=== PATIENT | female | born 1950 | race Caucasian/White ===

== ENCOUNTER 2017-03-17 07:30 | Day surgery (SDC) | payer MEDICARE, BC ==
[~2017-03-17 07:30] MED LIST: Fluorescein 5 ML Vial ONE; Scopolamine 1.5 MG Transdermal Patch TRDERM PRN; Sodium Chloride 0.9% 10 ML Syringe FLUSH PRN; Sodium Chloride 0.9% 2.5 ML Syringe FLUSH PRN; ceFAZolin 1 GM in Premix Bag 1 BAG IV ONE; fentaNYL 100 MCG/2 ML SDV IVPUSH PRN
[2017-03-17] MEDS ORDERED: Midazolam 1 MG/ML 2 ML SDV ONE (07:37)
[2017-03-17] MEDS ORDERED: Propofol 200 MG/20 ML SDV ONE (07:37)
[2017-03-17] MEDS ORDERED: Lidocaine 2% 5 ML SDV ONE (07:37)
[2017-03-17] MEDS ORDERED: Ondansetron 4 MG/2 ML SDV ONE (07:37)
[2017-03-17] MEDS ORDERED: fentaNYL 100 MCG/2 ML SDV ONE (07:37)
[2017-03-17] MEDS ORDERED: Rocuronium 10 MG/ML 10 ML Syringe ONE (07:37)
[2017-03-17] MEDS ORDERED: HYDROmorphone 2 MG/ML SDV ONE (07:38)
[2017-03-17] MEDS ORDERED: Acetaminophen 1,000 MG in Premix Bag 1 BAG IV SCH (08:00)
--- NOTE | 2017-03-17 08:13 | PCM.PREANE ---
Preanesthetic Assessment - Anesthesia/Transfusion/Family Hx Anesthesia History: Prior Anesthesia Reaction Type of Anesthesia Reaction: Excessive Nausea/Vomiting Family History of Anesthesia Reaction: No Transfusion History: No Prior Transfusion(s) Intubation History: Unknown - Review of Systems General: No Symptoms Pulmonary: No Symptoms Cardiovascular: No Symptoms Gastrointestinal: No Symptoms Neurological: No Symptoms Other: Reports: None - Physical Assessment O2 Sat by Pulse Oximetry: 95 Respiratory Rate: 16 Vital Signs: Last Vital Signs Temp 36.4 C 03/17/17 07:41 Pulse 74 03/17/17 07:41 Resp 16 03/17/17 07:41 BP 141/67 H 03/17/17 07:41 Pulse Ox 95 03/17/17 07:41 Height: 1.6 m Weight: 71.668 kg ASA Class: 2 Mental Status: Alert & Oriented x3 Airway Class: Mallampati = 2 Dentition: Reports: Normal Dentition Thyro-Mental Finger Breadths: 3 Mouth Opening Finger Breadths: 3 ROM/Head Extension: Full Lungs: Clear to Auscultation, Normal Respiratory Effort Cardiovascular: Regular Rate, Regular Rhythm - Allergies Allergies/Adverse Reactions: Allergies Allergy/AdvReac Type Severity Reaction Status Date / Time No Known Allergies Allergy Verified 03/17/17 07:43 - Blood Blood Available: No - Anesthesia Plan Pre-Op Medication Ordered: None - Acknowledgements Anesthesia Type Planned: General Anesthesia Pt an Appropriate Candidate for the Planned Anesthesia: Yes Alternatives and Risks of Anesthesia Discussed w Pt/Guardian: Yes Pt/Guardian Understands and Agrees with Anesthesia Plan: Yes PreAnesthesia Questionnaire HEENT History: Reports: Glaucoma Other HEENT History: wears glasses Cardiovascular History: Reports: Other (See Below) (borderline hypercholesteronemia) Gastrointestinal History: Reports: Other (See Below) Other Gastrointestinal History: occasional heartburn Genitourinary History: Reports: None UNDERCUTTER History: Reports: , Prolapsed Uterus - Past Surgical History Head Surgeries/Procedures: Reports: None HEENT Surgical History: Reports: Oral Surgery GI Surgical History: Reports: Colonoscopy (x2) Female Surgical History: Reports: Breast Biopsy, Tubal Ligation - SUBSTANCE USE Smoking Status *Q: Never Smoker Recreational Drug Use History: No - HOME MEDS Home Medications: Home Meds Aspirin [[place] Aspirin] 81 mg PO DAILY 03/12/17 [History] Brimonidine/Timolol [Combigan 0.2%/0.5% Ophth Soln] 1 drop EYEBOTH BID 03/12/17 [History] Ibuprofen 1 tab PO ASDIRECTED PRN 03/12/17 [History] Latanoprost [Xalatan 0.005% Ophth Soln] 1 drop EYEBOTH BEDTIME 03/12/17 [History ] - CURRENT (IN HOUSE) MEDS Current Meds: Current Medications Fentanyl (Sublimaze) 50 mcg IVPUSH .Q5MIN PRN PRN Reason: Pain Acetaminophen 1,000 mg/ Premix 100 mls @ 400 mls/hr IV .ONETIME [facility] Last Admin: 03/17/17 08:02 Dose: 400 mls/hr Scopolamine (Transderm-Scop) 1.5 mg TRDERM .ONCE PRN PRN Reason: Post Op Nausea Sodium Chloride (Saline Flush) 10 ml FLUSH ASDIRECTED PRN PRN Reason: Keep Vein Open Sodium Chloride (Saline Flush) 2.5 ml FLUSH ASDIRECTED PRN PRN Reason: Keep Vein Open Discontinued Medications Fentanyl (Sublimaze) Confirm Administered Dose 100 mcg .ROUTE .STK-MED ONE Stop: 03/17/17 07:38 Fluorescein Sodium (Ak-Fluor) Confirm Administered Dose 5 ml .ROUTE .STK-MED ONE Stop: 03/17/17 07:22 Hydromorphone HCl (Dilaudid) Confirm Administered Dose 2 mg .ROUTE .STK-MED ONE Stop: 03/17/17 07:39 Cefazolin Sodium/Dextrose 1 gm (/ Premix) 50 mls @ 100 mls/hr IV ONETIME ONE Stop: 03/17/17 05:29 Lidocaine (Xylocaine-Mpf 2%) Confirm Administered Dose 5 ml .ROUTE .STK-MED ONE Stop: 03/17/17 07:38 Midazolam HCl (Versed 1 Mg/Ml) Confirm Administered Dose 2 mg .ROUTE .STK-MED ONE Stop: 03/17/17 07:38 Ondansetron HCl (Zofran) Confirm Administered Dose 4 mg .ROUTE .STK-MED ONE Stop: 03/17/17 07:38 Propofol (Diprivan 20 Ml) Confirm Administered Dose 200 mg .ROUTE .STK-MED ONE Stop: 03/17/17 07:38 Rocuronium [place] (Zemuron) Confirm Administered Dose 100 mg .ROUTE .The Filter-MED ONE Stop: 03/17/17 07:38
[2017-03-17 08:36] LABS: CHLORIDE,CL 108 mmol/L (98-110); SODIUM,NA 141 mmol/L (136-146)
[2017-03-17] MEDS ORDERED: diphenhydrAMINE 50 MG/ML SDV ONE (09:00)
[2017-03-17] MEDS ORDERED: Dexamethasone 4 MG/ML 5 ML MDV ONE (09:22)
[2017-03-17] MEDS ORDERED: EPINEPHrine 1 MG/ML SDV ONE (09:25)
[2017-03-17] MEDS ORDERED: Furosemide 40 MG/4 ML VIAL ONE (09:42)
[2017-03-17] MEDS ORDERED: Ketorolac 30 MG/ML SDV IVPUSH ONE (10:27)
[2017-03-17] MEDS ORDERED: Acetaminophen/oxyCODONE 325-5 MG Tab PO PRN ×2 (10:27)
[2017-03-17] MEDS ORDERED: Morphine 2 MG/ML Syringe IVPUSH PRN (10:27)
[2017-03-17] MEDS ORDERED: Morphine 4 MG/ML Syringe IVPUSH PRN (10:27)
[2017-03-17] MEDS ORDERED: Ketorolac 30 MG/ML SDV IVPUSH PRN (10:27)
--- NOTE | 2017-03-17 10:40 | PCM.OPNOTE ---
- General Post-Op/Procedure Note Date of Surgery/Procedure: 03/17/17 Operative Procedure(s): TVH/BSO/anterior repair/culdoplasty/cystoscopy Findings: 3rd degree uterine prolapse and cystocele. Bilateral patent ureters Pre Op Diagnosis: Incomplete uterovaginal prolapse Post-Op Diagnosis: Same Anesthesia Technique: General ET Tube Primary Surgeon: Cortney Glover Contract Accountant: Renetta Mejía Pathology: uterus, tubes, ovaries, vaginal mucosa Fluid Replacement, Intraop: 1,800 EBL in mLs: 200 Complications: none known Condition: Good Free Text/Narrative:: Dictation [id number]
--- NOTE | 2017-03-17 11:18 | PCM.POSTAN ---
POST ANESTHESIA ASSESSMENT - MENTAL STATUS Mental Status: Alert, Oriented - RESPIRATORY Respiratory Status: Respiratory Rate WNL, Airway Patent, O2 Saturation Stable - CARDIOVASCULAR CV Status: Pulse Rate WNL, Blood Pressure Stable - GASTROINTESTINAL GI Status: No Symptoms - PAIN Pain Score: 2 - POST OP HYDRATION Hydration Status: Adequate & Stable - OBSERVATIONS Free Text/Narrative:: no anesthesia problems
[2017-03-17] MEDS: Lactated Ringers 1,000 ML IV SCH ×2 (11:39→20:06)
[2017-03-17] MEDS: Ondansetron 4 MG/2 ML SDV IVPUSH PRN ×2 (15:27→22:40)
--- NOTE | 2017-03-17 16:10 | OR ---
SURGEON: Cortney Glover M.D. DATE OF PROCEDURE: 03/17/2017 PREOPERATIVE DIAGNOSIS: Incomplete uterovaginal prolapse, symptomatic. POSTOPERATIVE DIAGNOSIS: Incomplete uterovaginal prolapse, symptomatic. PROCEDURE: 1. Total vaginal hysterectomy and bilateral salpingo-oophorectomy. 2. Anterior colporrhaphy. 3. Stoner's culdoplasty and cystoscopy. ANESTHESIA: General endotracheal anesthesia. FINAL CLEANER: Renetta Mejía M.D. ESTIMATED BLOOD LOSS: 200 mL. FLUIDS: 1800 mL crystalloid. COMPLICATIONS: None known. FINDINGS: Third-degree uterine prolapse and cystocele. Bilateral patent ureters with cystoscopy, post procedure. DISPOSITION: The patient to PACU in stable. SPECIMENS: Pathology. INDICATIONS: Pamela is a 66-year-old postmenopausal female, who has ongoing difficulties with pelvic organ prolapse. At this time, she would like to proceed with surgical intervention. Risks of the procedure have been discussed with her. Proper consent obtained. The patient was taken to the operating room, where she underwent general endotracheal anesthesia. She was placed in modified dorsal position prepped and draped in the usual sterile fashion. SCDs lower extremities. Lucio to gravity. Received Ancef prophylactically. A time-out was performed. A heavyweight speculum was placed posteriorly to the vagina, anterior [place]. Cervix was grasped with Yifan clamp and circumscribed with Bovie cautery. Anterior and posterior and side wall mucosa was dissected away from underlying peritoneum bluntly. The posterior peritoneum was tented downward and entered sharply. A longer weighted speculum was replaced with the shorter anteriorly. A sharp dissection was performed with Metzenbaum scissors to enter the anterior cul-de-sac. Colt was now placed to mobilize the bladder away from operative field. Ann Marie clamp was placed on either sides, along the uterosacral ligaments, transected and suture ligated with 2-0 Vicryl. Further pedicle on either side was able be secured, transected, and suture ligated in the final pedicle on either side, incorporating the utero tubo-ovarian pedicle was able to be secured, transected, and suture ligated. The uterus was handed off to manufacturing maintenance technician. The moist vaginal packing was now placed to mobilize the bowel away from operative field. The right infundibulopelvic ligament was able to be identified. The tube and ovary were grasped with a Peter clamp and Z-clamp x2 was placed across the pedicle. The pedicle was now transected and suture ligated with 2-0 Vicryl on pass followed by suture. The pedicle was inspected and found to be hemostatic. A similar process was performed on the patient's left side. The infundibulopelvic pelvic ligament was able to be identified, transected with the Z-clamp x2, cut and suture tied x2. These pedicles were closely inspected, found to be hemostatic, and sutures trimmed. The uterosacral ligament pedicle on either side was secured to the vaginal apex in order to help decrease risk for enterocele forming. Stoner's culdoplasty was performed. The 2-0 Vicryl incorporating the left uterosacral ligament was able to be reefed along the posterior peritoneum and then incorporating the right uterosacral ligament in a similar fashion was performed on further posterior reefing of the peritoneum just cephalad to this previous suture. Attention was now turned to performing the anterior repair as the pedicles appeared hemostatic along the hysterectomy. Along the midline, the anterior mucosa was able to be grasped with Allis clamps. Hydrodissection was performed along the midline. A sagittal midline anterior mucosal incision was created using Metzenbaum scissors. This was further dissected. The edges of the mucosa were now grasped on either side with serial Allis clamps. The overlying mucosa was gently dissected sharply and bluntly from underlying muscularis tissue until a stronger lateral muscularis tissue was able to be identified. This tissue was now replicated using 2-0 Vicryl in inverted mattress suture technique in order to reduce the cystocele defect. Sutures trimmed, excess vaginal mucosa was trimmed. The edges of mucosa were now replicated using 0 Vicryl in continuous running locked fashion; one to the level of the vaginal cuff. The Stoner's culdoplasty sutures were tied down x2. The remainder of the vaginal mucosa was now closed along the cuff and the cuff line was inspected and found to be hemostatic. All sutures trimmed. The Lucio balloon was deflated, Lucio catheter removed, and cystoscope was introduced. IV porcine with Lasix had been introduced via IV. The bladder was able to be visualized. The dome of the bladder was found to be intact. Trigone was inspected. The right ureteral orifice followed by the left ureteral orifice had fluorescein dyed urine seen streaming from them, helping to ensure ureteral patency. Therefore, the bladder was drained. Lucio catheter was replaced. The cuff line once again inspected and found to be hemostatic. Vaginal packing was placed. The patient tolerated the procedure well. She will go to PACU in stable condition. All specimens to pathology. Sponge, instrument, and needle counts were correct x2. DAVID / MCKENZIE /[id number]
[2017-03-17] MEDS: Promethazine 25 MG/ML SDV IM PRN (17:10)
--- NOTE | 2017-03-17 18:30 | PCM.SN ---
- Free Text/Narrative Note: Patient's pain is controlled overall--had emesis earlier, nausea is improving. VS stable overall--BPs mildly elevated. Explained intraoperative findings, procedure. Continue postoperative cares and provide antiemetics as indicated. Plan removal of vaginal pack and thomas in the morning.
[2017-03-17] MEDS: Docusate Sodium 100 MG Cap PO SCH (20:06)
[2017-03-18] MEDS: Promethazine 25 MG/ML SDV IM PRN (00:53)
[2017-03-18] MEDS: Lactated Ringers 1,000 ML IV SCH (03:52)
[2017-03-18 05:37] LABS: CHLORIDE,CL 99 mmol/L (98-110); SODIUM,NA 132 mmol/L (136-146)
[2017-03-18] MEDS: Docusate Sodium 100 MG Cap PO SCH (08:26)
--- NOTE | 2017-03-18 10:40 | PCM.SURGPN ---
- General Info Date of Service: 03/18/17 POD#: 1 Functional Status: Reports: Pain Controlled, Tolerating Diet, Ambulating - Review of Systems General: Denies: Fever, Weakness Pulmonary: Denies: Shortness of Breath Cardiovascular: Denies: Chest Pain, Palpitations, Lightheadedness Gastrointestinal: Denies: Nausea (had multiple emesis last night, but finally resolved and slept through the night. Had toast this morning), Vomiting Genitourinary: Denies: Flank Pain Neurological: Reports: No Symptoms Psychiatric: Reports: No Symptoms - Patient Data Vitals - Most Recent: Last Vital Signs Temp 37.2 C 03/18/17 08:00 Pulse 93 03/18/17 08:00 Resp 16 03/18/17 08:00 BP 139/81 03/18/17 08:00 Pulse Ox 95 03/18/17 08:00 Weight - Most Recent: 71.668 kg I&O - Last 24 Hours: Intake & Output 03/17/17 03/18/17 03/18/17 22:59 06:59 14:59 Intake Total 2107 1360 Output Total 925 2150 Balance 1182 -790 Lab Results Last 24 Hrs: Laboratory Results - last 24 hr 03/18/17 03/18/17 Range/Units 04:58 04:58 WBC 16.44 H (4.0-11.0) K/uL RBC 4.01 L (4.30-5.90) M/uL Hgb 11.7 L (12.0-16.0) g/dL Hct 34.4 L (36.0-46.0) % MCV 85.8 (80.0-98.0) fL MCH 29.2 (27.0-32.0) pg MCHC 34.0 (31.0-37.0) g/dL RDW Std Deviation 38.0 (28.0-62.0) fl RDW Coeff of Katiana 12 (11.0-15.0) % Plt Count 316 (150-400) K/uL MPV 9.40 (7.40-12.00) fL Neut % (Auto) 82.7 H (48.0-80.0) % Lymph % (Auto) 10.6 L (16.0-40.0) % [place] % (Auto) 6.6 (0.0-15.0) % Eos % (Auto) 0.0 (0.0-7.0) % Baso % (Auto) 0.1 (0.0-1.5) % Neut # (Auto) 13.6 H (1.4-5.7) K/uL Lymph # (Auto) 1.7 (0.6-2.4) K/uL [place] # (Auto) 1.1 H (0.0-0.8) K/uL Eos # (Auto) 0.0 (0.0-0.7) K/uL Baso # (Auto) 0.0 (0.0-0.1) K/uL Nucleated RBC % 0.0 /100WBC Nucleated RBCs # 0 K/uL Sodium 132 L (136-146) mmol/L Potassium 4.0 (3.5-5.1) mmol/L Chloride 99 (98-110) mmol/L Carbon Dioxide 21 (21-31) mmol/L BUN 9 (6.0-23.0) mg/dL Creatinine 0.7 (0.6-1.5) mg/dL Est Cr Clr Drug Dosing 63.63 mL/min Estimated GFR (MDRD) > 60.0 ml/min Glucose 121 H (60-110) mg/dL Calcium 9.1 (8.8-10.8) mg/dL Med Orders - Current: Current Medications Docusate Sodium (Colace) 100 mg PO BID [facility] Last Admin: 03/18/17 08:26 Dose: 100 mg Fentanyl (Sublimaze) 50 mcg IVPUSH .Q5MIN PRN PRN Reason: Pain Acetaminophen 1,000 mg/ Premix 100 mls @ 400 mls/hr IV .ONETIME [facility] Last Admin: 03/17/17 08:02 Dose: 400 mls/hr Lactated Ringer's (Ringers, Lactated) 1,000 mls @ 125 mls/hr IV ASDIRECTED [facility] Last Admin: 03/18/17 03:52 Dose: 125 mls/hr Ketorolac Tromethamine (Toradol) 15 mg IVPUSH Q6H PRN PRN Reason: Pain (severe 7-10) Stop: 03/22/17 10:27 Last Admin: 03/18/17 00:53 Dose: 15 mg Morphine Sulfate (Morphine) 2 mg IVPUSH Q2H PRN PRN Reason: Pain (severe 7-10) Last Admin: 03/17/17 18:51 Dose: 2 mg Morphine Sulfate (Morphine) 4 mg IVPUSH Q2H PRN PRN Reason: Pain (severe 7-10) Ondansetron HCl (Zofran) 4 mg IVPUSH Q6H PRN PRN Reason: Nausea/Vomiting Last Admin: 03/17/17 22:40 Dose: 4 mg Oxycodone/Acetaminophen (Percocet 325-5 Mg) 1 tab PO Q4H PRN PRN Reason: Pain (moderate 4-6) Last Admin: 03/17/17 14:58 Dose: 1 tab Oxycodone/Acetaminophen (Percocet 325-5 Mg) 2 tab PO Q4H PRN PRN Reason: Pain (moderate 4-6) Promethazine HCl (Phenergan) 25 mg IM Q6H PRN PRN Reason: Nausea/Vomiting Last Admin: 03/18/17 00:53 Dose: 25 mg Sodium Chloride (Saline Flush) 10 ml FLUSH ASDIRECTED PRN PRN Reason: Keep Vein Open Sodium Chloride (Saline Flush) 2.5 ml FLUSH ASDIRECTED PRN PRN Reason: Keep Vein Open Discontinued Medications Dexamethasone (Dexamethasone) Confirm Administered Dose 20 mg .ROUTE .STK-MED ONE Stop: 03/17/17 09:23 Diphenhydramine HCl (Benadryl) Confirm Administered Dose 50 mg .ROUTE .STK-MED ONE Stop: 03/17/17 09:01 Epinephrine HCl (Adrenalin) Confirm Administered Dose 1 mg .ROUTE .STK-MED ONE Stop: 03/17/17 09:26 Fentanyl (Sublimaze) Confirm Administered Dose 100 mcg .ROUTE .STK-MED ONE Stop: 03/17/17 07:38 Fluorescein Sodium (Ak-Fluor) Confirm Administered Dose 5 ml .ROUTE .STK-MED ONE Stop: 03/17/17 07:22 Furosemide (Lasix) Confirm Administered Dose 40 mg .ROUTE .STK-MED ONE Stop: 03/17/17 09:43 Hydromorphone HCl (Dilaudid) Confirm Administered Dose 2 mg .ROUTE .STK-MED ONE Stop: 03/17/17 07:39 Cefazolin Sodium/Dextrose 1 gm (/ Premix) 50 mls @ 100 mls/hr IV ONETIME ONE Stop: 03/17/17 05:29 Last Admin: 03/17/17 11:36 Dose: Not Given Ketorolac Tromethamine (Toradol) 30 mg IVPUSH ONETIME ONE Stop: 03/17/17 10:28 Last Admin: 03/17/17 10:55 Dose: 30 mg Lidocaine (Xylocaine-Mpf 2%) Confirm Administered Dose 5 ml .ROUTE .STK-MED ONE Stop: 03/17/17 07:38 Midazolam HCl (Versed 1 Mg/Ml) Confirm Administered Dose 2 mg .ROUTE .STK-MED ONE Stop: 03/17/17 07:38 Ondansetron HCl (Zofran) Confirm Administered Dose 4 mg .ROUTE .STK-MED ONE Stop: 03/17/17 07:38 Propofol (Diprivan 20 Ml) Confirm Administered Dose 200 mg .ROUTE .STK-MED ONE Stop: 03/17/17 07:38 Rocuronium [place] (Zemuron) Confirm Administered Dose 100 mg .ROUTE .STK-MED ONE Stop: 03/17/17 07:38 Scopolamine (Transderm-Scop) 1.5 mg TRDERM .ONCE PRN PRN Reason: Post Op Nausea - Exam General: Alert, Oriented Lungs: Normal Respiratory Effort Cardiovascular: Regular Rate, Regular Rhythm GI/Abdominal Exam: Normal Bowel Sounds, Soft, No Distention. No: Guarding, Rigid Extremities: No: Rafita's Sign Skin: Warm, Dry, Intact Psy/Mental Status: Alert, Normal Affect Physical Findings Comment:: Vaginal packing removed, patient tolerated well. - Problem List & Annotations (1) Incomplete uterovaginal prolapse SNOMED Code(s): 290686796 Code(s): N81.2 - INCOMPLETE UTEROVAGINAL PROLAPSE Status: Acute Current Visit: Yes - Problem List Review Problem List Initiated/Reviewed/Updated: Yes - My Orders Last 24 Hours: Active Orders 24 hr Category Date Time Status Patient Status [ADT] Routine ADT 03/17/17 10:27 Active Antiembolic Devices [RC] PER UNIT ROUTINE Care 03/17/17 10:28 Active May Shower [RC] ASDIRECTED Care 03/17/17 10:27 Active Notify Provider Intake and Out [RC] ASDIRECTED Care 03/17/17 10:27 Active Notify Provider Vital Signs [RC] ASDIRECTED Care 03/17/17 10:27 Active RT Incentive Spirometry [RC] Q2HWA Care 03/17/17 10:27 Active Ready for Discharge [RC] PER UNIT ROUTINE Care 03/18/17 10:37 Ordered Up With Assistance [RC] PER UNIT ROUTINE Care 03/17/17 10:27 Active Up ad Lin [RC] PER UNIT ROUTINE Care 03/17/17 10:27 Active Urinary Catheter Removal [RC] Per Unit Routine Care 03/17/17 10:27 Active Regular Diet [DIET] Diet 03/17/17 Lunch Active Acetaminophen/oxyCODONE [Percocet 325-5 MG] Med 03/17/17 10:27 Active 1 tab PO Q4H PRN Acetaminophen/oxyCODONE [Percocet 325-5 MG] Med 03/17/17 10:27 Active 2 tab PO Q4H PRN Docusate Sodium [Colace] Med 03/17/17 21:00 Active 100 mg PO BID Ketorolac [Toradol] Med 03/17/17 10:27 Active 15 mg IVPUSH Q6H PRN Lactated Ringers [Ringers, Lactated] 1,000 ml Med 03/17/17 10:30 Active IV ASDIRECTED Morphine Med 03/17/17 10:27 Active 2 mg IVPUSH Q2H PRN Morphine Med 03/17/17 10:27 Active 4 mg IVPUSH Q2H PRN Ondansetron [Zofran] Med 03/17/17 10:27 Active 4 mg IVPUSH Q6H PRN Promethazine [Phenergan] Med 03/17/17 10:27 Active 25 mg IM Q6H PRN Perineal Care [OM.PC] Per Unit Routine Oth 03/17/17 10:28 Ordered Peripheral IV Discontinue [OM.PC] Routine Oth 03/17/17 10:27 Ordered Sequential Compression Device [OM.PC] Per Unit Routine Oth 03/17/17 10:27 Ordered Medication Orders Docusate Sodium (Colace) 100 mg PO BID [facility] Last Admin: 03/18/17 08:26 Dose: 100 mg Admin: 03/17/17 20:06 Dose: 100 mg Fentanyl (Sublimaze) 50 mcg IVPUSH .Q5MIN PRN PRN Reason: Pain Acetaminophen 1,000 mg/ Premix 100 mls @ 400 mls/hr IV .ONETIME [facility] Last Admin: 03/17/17 08:02 Dose: 400 mls/hr Lactated Ringer's (Ringers, Lactated) 1,000 mls @ 125 mls/hr IV ASDIRECTED [facility] Last Admin: 03/18/17 03:52 Dose: 125 mls/hr Infusion: 03/18/17 03:52 Dose: 125 mls/hr Admin: 03/17/17 20:06 Dose: 125 mls/hr Infusion: 03/17/17 19:39 Dose: 125 mls/hr Admin: 03/17/17 11:39 Dose: 125 mls/hr Ketorolac Tromethamine (Toradol) 15 mg IVPUSH Q6H PRN PRN Reason: Pain (severe 7-10) Stop: 03/22/17 10:27 Last Admin: 03/18/17 00:53 Dose: 15 mg Morphine Sulfate (Morphine) 2 mg IVPUSH Q2H PRN PRN Reason: Pain (severe 7-10) Last Admin: 03/17/17 18:51 Dose: 2 mg Morphine Sulfate (Morphine) 4 mg IVPUSH Q2H PRN PRN Reason: Pain (severe 7-10) Ondansetron HCl (Zofran) 4 mg IVPUSH Q6H PRN PRN Reason: Nausea/Vomiting Last Admin: 03/17/17 22:40 Dose: 4 mg Admin: 03/17/17 15:27 Dose: 4 mg Oxycodone/Acetaminophen (Percocet 325-5 Mg) 1 tab PO Q4H PRN PRN Reason: Pain (moderate 4-6) Last Admin: 03/17/17 14:58 Dose: 1 tab Oxycodone/Acetaminophen (Percocet 325-5 Mg) 2 tab PO Q4H PRN PRN Reason: Pain (moderate 4-6) Promethazine HCl (Phenergan) 25 mg IM Q6H PRN PRN Reason: Nausea/Vomiting Last Admin: 03/18/17 00:53 Dose: 25 mg Admin: 03/17/17 17:10 Dose: 25 mg Sodium Chloride (Saline Flush) 10 ml FLUSH ASDIRECTED PRN PRN Reason: Keep Vein Open Sodium Chloride (Saline Flush) 2.5 ml FLUSH ASDIRECTED PRN PRN Reason: Keep Vein Open - Assessment Assessment (Free Text/Narrative):: POD 1 status post TVH/anterior repair/culdoplasty/cystoscopy Nausea with vomiting--resolved this am - Plan Plan (Free Text/Narrative):: Vaginal pack removed, remove thomas catheter. Ambulate halls this am. Once able to ambulate and void, may be discharged to home. Discharge to home, discharge instructions reviewed. Infection and bleeding warnings reviewed. Follow up at [facility] 2 and 6 weeks.
== END 2017-03-18 12:52 | disposition home or self-care (01) ==
LOC: MW.SDS 07:30 → MW.MS 10:27 → MW.SDS 03-18 12:52
PROVIDERS: ATTEND Obstetrics & Gynecology
DX: N81.3 Complete uterovaginal prolapse (principal); N84.0 Polyp of corpus uteri; E78.00 Pure hypercholesterolemia, unspecified; R11.2 Nausea with vomiting, unspecified; Z79.82 Long term (current) use of aspirin; Z79.899 Other long term (current) drug therapy; Z98.51 Tubal ligation status; Z98.890 Other specified postprocedural states
CPT/HCPCS: 36415; 58263; 80048; 85025; 85027; 86850; 86900; 86901; 88307; A9270; J0171; J1100; J1170; J1200; J1885; J1940; J2250; J2270; J2405; J2550; J3010; J7120; 00944; J2704

== ENCOUNTER 2018-09-07 10:30 | Day surgery (SDC) | payer MEDICARE, BC ==
[~2018-09-07 10:30] MED LIST changes: -Fluorescein 5 ML Vial ONE; +Lactated Ringers 1,000 ML IV SCH; -Scopolamine 1.5 MG Transdermal Patch TRDERM PRN; +Sodium Chloride 0.9% 10 ML SDV IV PRN; -ceFAZolin 1 GM in Premix Bag 1 BAG IV ONE; -fentaNYL 100 MCG/2 ML SDV IVPUSH PRN
[2018-09-07] MEDS ORDERED: Lidocaine 2% 5 ML SDV ONE (11:08)
[2018-09-07] MEDS ORDERED: fentaNYL 100 MCG/2 ML SDV ONE (11:08)
[2018-09-07] MEDS ORDERED: Propofol 200 MG/20 ML SDV ONE (11:08)
--- NOTE | 2018-09-07 11:36 | PCM.PREANE ---
Preanesthetic Assessment - Anesthesia/Transfusion/Family Hx Anesthesia History: Prior Anesthesia Reaction Type of Anesthesia Reaction: Excessive Nausea/Vomiting Family History of Anesthesia Reaction: No Transfusion History: No Prior Transfusion(s) Intubation History: Unknown - Review of Systems General: No Symptoms Pulmonary: No Symptoms Cardiovascular: No Symptoms Gastrointestinal: No Symptoms, Other (screening) Neurological: No Symptoms Other: Reports: None - Physical Assessment O2 Sat by Pulse Oximetry: 95 Respiratory Rate: 16 Vital Signs: Last Vital Signs Temp 36.3 C 09/07/18 11:17 Pulse 66 09/07/18 11:17 Resp 16 09/07/18 11:17 BP 120/63 09/07/18 11:17 Pulse Ox 95 09/07/18 11:17 Height: 5 ft 3 in Weight: 70.307 kg ASA Class: 2 Mental Status: Alert & Oriented x3 Airway Class: Mallampati = 2 Dentition: Reports: Normal Dentition Thyro-Mental Finger Breadths: 2 Mouth Opening Finger Breadths: 3 ROM/Head Extension: Limited/Partial Lungs: Clear to Auscultation, Normal Respiratory Effort Cardiovascular: Regular Rate, Regular Rhythm - Allergies Allergies/Adverse Reactions: Allergies Allergy/AdvReac Type Severity Reaction Status Date / Time No Known Allergies Allergy Verified 08/31/18 14:22 - Blood Blood Available: No - Anesthesia Plan Pre-Op Medication Ordered: None - Acknowledgements Anesthesia Type Planned: MAC Pt an Appropriate Candidate for the Planned Anesthesia: Yes Alternatives and Risks of Anesthesia Discussed w Pt/Guardian: Yes Pt/Guardian Understands and Agrees with Anesthesia Plan: Yes PreAnesthesia Questionnaire HEENT History: Reports: Glaucoma, Other (See Below) Other HEENT History: wears glasses Cardiovascular History: Reports: Other (See Below) Gastrointestinal History: Reports: Other (See Below) Other Gastrointestinal History: occasional heartburn Genitourinary History: Reports: None 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: Musculoskeletal History: Reports: Other (See Below) Other Musculoskeletal History: hx of Sciatica Neurological History: Reports: Other (See Below) Other Neuro History: hx of motion sickness - Past Surgical History Head Surgeries/Procedures: Reports: None HEENT Surgical History: Reports: Oral Surgery GI Surgical History: Reports: Colonoscopy (x2, last one about 10 years ago - normal) Female Surgical History: Reports: Hysterectomy - SUBSTANCE USE Smoking Status *Q: Never Smoker Recreational Drug Use History: No - HOME MEDS Home Medications: Home Meds Brimonidine/Timolol [Combigan 0.2%/0.5% Ophth Soln] 1 drop EYEBOTH BID 03/12/17 [History] Latanoprost [Xalatan 0.005% Ophth Soln] 1 drop EYEBOTH BEDTIME 03/12/17 [History ] Scopolamine [Transderm-Scop] 1 each TD ASDIRECTED PRN 09/07/18 [History] - CURRENT (IN HOUSE) MEDS Current Meds: Current Medications Lactated Ringer's (Ringers, Lactated) 1,000 mls @ 125 mls/hr IV ASDIRECTED [facility] Last Admin: 09/07/18 11:14 Dose: 125 mls/hr Sodium Chloride (Saline Flush) 10 ml FLUSH ASDIRECTED PRN PRN Reason: Keep Vein Open Sodium Chloride (Saline Flush) 2.5 ml FLUSH ASDIRECTED PRN PRN Reason: Keep Vein Open Sodium Chloride (Saline Flush) 10 ml FLUSH ASDIRECTED PRN PRN Reason: Keep Vein Open Sodium Chloride (Saline Flush) 2.5 ml FLUSH ASDIRECTED PRN PRN Reason: Keep Vein Open Sodium Chloride (Normal Saline) 10 ml IV ASDIRECTED PRN PRN Reason: IV Use Discontinued Medications Fentanyl (Sublimaze) Confirm Administered Dose 100 mcg .ROUTE .STK-MED ONE Stop: 09/07/18 11:09 Lidocaine (Xylocaine-Mpf 2%) Confirm Administered Dose 5 ml .ROUTE .STK-MED ONE Stop: 09/07/18 11:09 Propofol (Diprivan 20 Ml) Confirm Administered Dose 400 mg .ROUTE .STK-MED ONE Stop: 09/07/18 11:09
--- NOTE | 2018-09-07 15:03 | PCM48HPAN ---
Post Anesthesia Note - EVALUATION WITHIN 48HRS OF ANESTHETIC Vital Signs in Normal Range: Yes Patient Participated in Evaluation: Yes Respiratory Function Stable: Yes Airway Patent: Yes Cardiovascular Function Stable: Yes Hydration Status Stable: Yes Pain Control Satisfactory: Yes Nausea and Vomiting Control Satisfactory: Yes Mental Status Recovered: Yes Resp Rate: 12 - COMMENTS/OBSERVATIONS Free Text/Narrative:: no anesthesia problems
--- NOTE | 2018-09-07 15:08 | PCM.OPNOTE ---
- General Post-Op/Procedure Note Date of Surgery/Procedure: 09/07/18 Operative Procedure(s): COlonoscopy Findings: Diverticulosis of sigmoid colon Pre Op Diagnosis: Screening colonoscopy Post-Op Diagnosis: diverticulosis Anesthesia Technique: RON Primary Surgeon: Katie Hope Condition: Good Free Text/Narrative:: Intake & Output 09/07/18 09/07/18 09/07/18 06:59 14:59 22:59 Intake Total 1500 Balance 1500
--- NOTE | 2018-09-08 14:38 | OR ---
SURGEON: KATIE HOPE MD DATE OF PROCEDURE: 09/07/2018 PREOPERATIVE DIAGNOSIS: Screening colonoscopy. POSTOPERATIVE DIAGNOSIS: Diverticulosis. PROCEDURE PERFORMED: Screening colonoscopy. PRIMARY SURGEON: Endoscopist, Katie Hope MD. ANESTHESIA: MAC. INSTRUMENT USED: Olympus colonoscope. EXTENT OF EXAM: To the cecum. PREPARATION: Good. LIMITATIONS: None. INDICATION FOR EXAMINATION: The patient is a 68-year-old female who returns for repeat colonoscopy. I explained the procedure, expected perioperative course, and risks including bleeding, infection, or damage to surrounding structures including perforation. The patient verbalized understanding and wishes to proceed. PROCEDURE IN DETAIL: The patient was brought into the endoscopy suite and placed in a left lateral decubitus position. A time-out was completed verifying the patient's name, age, date of , allergies, and procedure to be performed. Monitored anesthesia care was induced and continuous oxygen was provided via nasal cannula throughout the procedure. After adequate sedation was achieved, a digital rectal exam was performed. This exam was within normal limits. A well lubricated colonoscope was inserted into the rectum and advanced under direct visualization to the level of cecum. The cecum was identified by both visual and anatomic landmarks. A photograph was taken of the cecal cap as well as with the scope retroflexed within the cecum. The scope was then fully withdrawn while examining the color, texture, anatomy, and integrity of the mucosa from the cecum to the anal canal. The patient was found to have scattered diverticula throughout the sigmoid colon. The scope was then brought into the rectum and retroflexed to allow visualization of the anal canal opening. This appeared normal and a photograph was taken. The scope was then straightened out and fully withdrawn. The cecum to anus time was 6 minutes. The patient tolerated the procedure well and was taken to the PACU in stable condition. ENDOSCOPIC DIAGNOSIS: Diverticulosis. RECOMMENDATIONS: The patient can follow up in 2 weeks to discuss this diagnosis. Otherwise, she will not need any further colonoscopies unless she has changes in her bowel habits. PAGE RINCON /[id number]
== END 2018-09-07 15:20 | disposition home or self-care (01) ==
LOC: MW.SDS 10:30
PROVIDERS: ATTEND Surgery
DX: Z12.11 Encounter for screening for malignant neoplasm of colon (principal); K57.30 Diverticulosis of large intestine without perforation or abscess without bleeding; H40.9 Unspecified glaucoma
CPT/HCPCS: G0121; J2001; J2704; J3010; J7120